=== PATIENT | male | born 1970 | race Caucasian/White ===

== ENCOUNTER 2019-07-28 00:58 | Emergency (ER) | payer OTHER, SELFPAY ==
[2019-07-28 01:07] VITALS: BP 116/80; PULSE 56; RESP 16; TEMP 36.6; O2SAT 98
--- NOTE | 2019-07-28 01:25 | ED.WOUNDLAC ---
HPI - Wound/Laceration General Chief Complaint: Wound/Laceration Stated Complaint: cut on left eye/needs stitches Time Seen by Provider: 07/28/19 01:15 Source: patient Mode of arrival: Ambulatory Limitations: no limitations History of Present Illness HPI narrative: 48-year-old male here for evaluation of cut above his left eye. Several hours ago patient states he was placing a battery on a hand cart when the cart came up and hit him on the side of the head. No loss of consciousness. Not on blood thinners. He did clean it out and put a butterfly bandage over the area. Came into the emergency department for stitches. Related Data Allergies Allergy/AdvReac Type Severity Reaction Status Date / Time No Known Drug Allergies Allergy Verified 07/28/19 01:31 Review of Systems Constitutional Constitutional: Denies fever(s) Eyes Eyes: Denies change in vision, Denies diplopia and Denies eye pain Integumentary/Breasts Comments: Cut above left eye Neurologic Neurologic: Denies behavioral changes Psychiatric Psychiatric: Denies behavioral changes Hematologic/Lymphatic Hematologic/Lymphatic: Denies easy bleeding and Denies easy bruising Patient History Medical History Healthy adult (Acute) Social History Smoking Status: Never smoker Smoking Status: Never smoker alcohol intake frequency: a few times a month Substance Use Type: does not use Exam Initial Vital Signs Initial Vital Signs: Vital Signs Temperature 97.8 F 07/28/19 01:07 Pulse Rate 56 L 07/28/19 01:07 Respiratory Rate 16 07/28/19 01:07 Blood Pressure 116/80 07/28/19 01:07 Pulse Oximetry 98 07/28/19 01:07 Const General: cooperative and comfortable Limitations: mental status not altered HENMT Head: laceration Eyes Pupils: PERRL Skin Other: 3 cm laceration above the left eye Neuro General: alert and awake Cognition: normal cognition Speech: speech normal Extrem General: normal to inspection and capillary refill normal Psych Appearance: grossly normal and well kempt Procedures Laceration Repair Laceration 1: Site: face Side (If applicable): left Size (cm): 3 Description: linear Depth: simple, single layer Local Anesthetic: lidocaine 1% and with bicarb Amount of anesthesia used (mL): 3 Pre-repair: wound explored, irrigated extensively and deep structures intact Size (cm): 4-0 Number of sutures: 6 Technique: simple, interrupted Course Orders Ordered: Discontinued Medications Bacitracin (Bacitracin) 1 applic TOP NOW ONE Stop: 07/28/19 01:26 Last Admin: 07/28/19 01:28 Dose: 1 applic Documented by: MONO Lidocaine/Sodium Bicarbonate (Buffered Lidocaine 10 Ml Syr) 10 ml INJ NOW ONE Stop: 07/28/19 01:16 Last Admin: 07/28/19 01:28 Dose: 10 ml Documented by: MONO Vital Signs Vital signs: Vital Signs - 8 hr 07/28/19 01:07 Temperature 97.8 F Pulse Rate [Right] 56 L Respiratory Rate 16 Blood Pressure [Left Arm] 116/80 Pulse Oximetry 98 MDM - Wound/Laceration MDM Narrative Medical decision making narrative: Laceration above left eye closed as described above. He has no step-offs underneath this area. Extraocular muscles intact. No other injuries from the event. Low suspicion for fractures. Will hold on radiologic studies for now. Patient was given return precautions and care instructions and follow-up instructions. He expressed understanding and agreement plan. Discharge Plan Departure Patient Disposition: Home Clinical Impression: Laceration Discharge Date/Time: 07/28/19 01:45 Instructions: DI for Laceration Repair Activity Restrictions/Additional Instructions: After 24 hours you can shower like normal. You can use soap and water. You can use topical antibiotic ointment. Cover the area as needed especially at to keep your pillowcase clean. The stitches do need to be removed in 7 days. You can contact your primary provider for this. Referrals: Harris Baez MD [Primary Care Provider] -
[2019-07-28] MEDS: BACITRACIN OINT 0.9 GM PCKT 1 APPLIC TOP (01:28)
[2019-07-28] MEDS: LIDO 1%/SOD BICARB 8.4% (10ML) 10 ML SYRINGE INJ (01:28)
== END 2019-07-28 01:45 | disposition home or self-care (01) ==
PROVIDERS: Emergency Provider Emergency Medicine; PCP Student in an Organized Health Care Education/Training Program
DX: S01.111A Laceration without foreign body of right eyelid and periocular area, initial encounter (principal); W22.8XXA Striking against or struck by other objects, initial encounter
CPT/HCPCS: 12013; 99283